=== PATIENT | female | born 1995 | race Caucasian/White ===

== ENCOUNTER 2017-04-26 22:44 | Emergency (ER) | payer BC ==
[~2017-04-26] VITALS: Ht 170.2 cm; Wt 57.8 kg
[2017-04-26 23:31] LABS: HEMATOCRIT 39.8 % (36.0-46.0); MCHC 33.2 G/DL (30.0-36.0); MCV 90.5 FL (83-99); PLATELET COUNT 297 K/uL (156-360); RBC DIS.WIDTH-CV 13.9 % (11.8-14.6); RBC DIS.WIDTH-SD 46.5 % (39-53); WHITE BLOOD COUNT 8.6 K/uL (4.1-10.2)
[2017-04-26 23:39] LABS: CHLORIDE 108 mEq/L (99-109); POTASSIUM 3.8 mEq/L (3.7-5.4); SODIUM 140 mEq/L (136-147)
[2017-04-26 23:41] LABS: GLUCOSE 97 mg/dL (70-99)
[2017-04-26 23:42] LABS: ANION GAP 9 MEQ/L (2-14)
[2017-04-26 23:43] LABS: TOTAL BILIRUBIN 0.4 mg/dL (0.0-1.0)
[2017-04-26 23:44] LABS: ALKALINE PHOSPHATASE 41 IU/L (3-129)
[2017-04-26 23:45] LABS: GFR ESTIMATE (CALCULATED) > 59 mL/min/
[2017-04-26 23:46] LABS: UREA NITROGEN (BUN) 13 mg/dL (9-23)
[2017-04-26 23:48] LABS: LIPASE 19 U/L (1.0-51.0)
[2017-04-26 23:55] LABS: QUANTITATIVE HCG < 4.0 MIU/ML
[2017-04-27] MEDS ORDERED: ZOFRAN ODT4 MG PO (00:46)
[2017-04-27] MEDS ORDERED: BENTYL10 MG PO (00:46)
[2017-04-27 00:49] VITALS: BP 114/80
== END 2017-04-27 00:55 | disposition home or self-care (01) ==
LOC: EME 22:44
PROVIDERS: Nurse Practitioner Family
DX: R10.30 Lower abdominal pain, unspecified (principal); R11.2 Nausea with vomiting, unspecified
CPT/HCPCS: 74177; 80053; 83690; 84702; 85027; 99281; 99284; J1885; J2405; J7030